=== PATIENT | female | born 1980 | race Caucasian/White ===

== ENCOUNTER 2016-12-02 19:01 | Emergency (ER) | payer BC ==
--- NOTE | 2016-12-08 07:45 | ER ---
ADMIT: 12/02/2016 RM/LOC: [facility] MR#: [id number] [address] [facility] [place] [place] [address] Emergency Room Report SEX: F AGE: 36 : 1980 DATE: 12/02/2016 HISTORY OF PRESENT ILLNESS: A 36-year-old female, presents to the emergency room complaining of inability to void, last she voided was yesterday p.m. She had, had pain with urination and urgency. She has factor V Leiden and had some groin stents placed with some bladder and kidney issues. ALLERGIES: SHE IS ALLERGIC TO ALBUTEROL AND BACTRIM. MEDICATIONS: She takes Eliquis and aspirin. PHYSICAL EXAMINATION: Within normal limits. The bladder was emptied by the nurse with a catheter; however, she does have blood in the urine 1+ and this could be related to the catheter that was introduced to empty the bladder, but because she is a factor V Leiden and she could still have issues with clots, I decided to do a CT scan. At this point, the CT scan is pending. She feels much better as a result of the urinary catheter. CLINICAL IMPRESSION: 1. Urinary retention. 2. Factor V Leiden. Dr. Ferrell will proceed with discharge of this patient according to the CT report. MARY Hancock / Ron Ferrell MD / dayami JOB #: [id number] CC: Ron Ferrell MD, Attending Physician Maury Nolen MD, Family Physician
--- NOTE | 2016-12-08 07:45 | ER ---
ADMIT: 12/02/2016 RM/LOC: ER [facility] MR#: [id number] [address] [place] [address] Emergency Room Report SEX: F AGE: 36 : 1980 DATE: 12/02/2016 ADDENDUM: CT scan of the abdomen and pelvis was unremarkable. I discussed the results with the patient and gave her the option of going home with a Portillo in place or try to go home without a Portillo and see how she is able to do this evening with her urinary retention. The patient does not want a catheter at this time, so she was given a dose of Flomax here, will be discharged home with a prescription for Flomax and is to follow up with her primary care physician's office tomorrow and she is also given name for Urology to follow up if needed. She is told she can return to the ER if she is having any problems or unable to void this evening. DIAGNOSIS: Urinary retention. Ron Ferrell MD/ dayami JOB #: [id number] CC: Ron Ferrell MD, Attending Physician Maury Nolen MD, Family Physician
== END 2016-12-02 22:50 | disposition home or self-care (01) ==
LOC: ER 19:01
PROC: 0T9B70Z Drainage of Bladder with Drainage Device, Via Natural or Artificial Opening (ICD-10-PCS; principal; 2016-12-02)
DX: R33.9 Retention of urine, unspecified (principal); D68.51 Activated protein C resistance; Z90.49 Acquired absence of other specified parts of digestive tract; Z79.82 Long term (current) use of aspirin; Z88.1 Allergy status to other antibiotic agents; Z88.8 Allergy status to other drugs, medicaments and biological substances